=== PATIENT | male | born 1970 | race Caucasian/White ===

== ENCOUNTER 2018-12-18 19:40 | Emergency (ER) | payer OTHER ==
[~2018-12-18] VITALS: Ht 170.2 cm; Wt 101.2 kg
[2018-12-18] MEDS ORDERED: SYNTHROID150 MCG PO (19:48)
== END 2018-12-18 22:06 | disposition home or self-care (01) ==
LOC: ER 19:40
DX: J40 Bronchitis, not specified as acute or chronic (principal)

== ENCOUNTER 2023-02-16 08:40 | Emergency (ER) | payer OTHER ==
[~2023-02-16] VITALS: Ht 170.2 cm; Wt 81.6 kg
[~2023-02-16 08:40] MED LIST: SYNTHROID150 MCG PO
[2023-02-16] MEDS ORDERED: PEPCID AC20 MG PO (11:53)
== END 2023-02-16 12:06 | disposition home or self-care (01) ==
LOC: ER 08:40
DX: R10.32 Left lower quadrant pain (principal); K76.0 Fatty (change of) liver, not elsewhere classified; I10 Essential (primary) hypertension; E03.9 Hypothyroidism, unspecified